=== PATIENT | female | born 1945 | race Caucasian/White ===

== ENCOUNTER → 2019-08-15 | Outpatient (CLI) | payer MEDICARE, BC ==
[~2019-08-15] MED LIST: ASPI81TA86 PO; ATEN50TA9 PO; MULT-90 PO; PRAV20TA2 PO; VENL75TA2 PO; VITAD400CA FT
--- NOTE | 2019-08-15 16:16 | REP ---
REASON FOR EXAM: Hip pain. No trauma. No priors. Severe asymmetric hip joint space narrowing is present. There is mild marginal osteophytosis. There is no buttressing, fracture, or dislocation. IMPRESSION: Degenerative changes. Electronically Signed by Ayo Barton DO 08/16/2019 11:05 A
== END ==
LOC: M WUC 11:00
PROVIDERS: ATTEND Physician Assistant
DX: M25.751 Osteophyte, right hip (principal)

== ENCOUNTER 2019-09-22 12:23 | Emergency (ER) | payer MEDICARE, BC | END 2019-09-22 14:38 | disposition home or self-care (01) | LOC: M ED 12:23 | DX: N95.0 Postmenopausal bleeding (principal); R93.89 Abnormal findings on diagnostic imaging of other specified body structures; I10 Essential (primary) hypertension; E78.5 Hyperlipidemia, unspecified; Z79.899 Other long term (current) drug therapy; Z79.82 Long term (current) use of aspirin ==

== ENCOUNTER → 2019-09-29 | Outpatient (CLI) | payer MEDICARE, BC | LOC: M LABSMTC 08:56 | PROVIDERS: ATTEND Anesthesiology | DX: Z01.812 Encounter for preprocedural laboratory examination (principal); Z20.828 Contact with and (suspected) exposure to other viral communicable diseases ==

== ENCOUNTER 2019-10-04 06:08 | Day surgery (SDC) | payer MEDICARE, BC ==
[~2019-10-04] VITALS: Ht 160 cm; Wt 78.5 kg
[2019-10-04] MEDS ORDERED: VENL75TA2 PO (06:31)
[2019-10-04] MEDS ORDERED: VITAD400CA FT (06:31)
[2019-10-04] MEDS ORDERED: MULT-90 PO (06:31)
[2019-10-04] MEDS ORDERED: ATEN50TA9 PO (06:31)
[2019-10-04] MEDS ORDERED: ASPI81TA86 PO (06:31)
[2019-10-04] MEDS ORDERED: PRAV20TA2 PO (06:31)
[2019-10-04 06:56] LABS: HEMATOCRIT 41.7 % (36.0-47.0); HEMOGLOBIN 14.4 g/dl (12.0-15.5); MEAN CORPUSCULAR HEMOGLOBIN 33.1 pg (27.0-33.0); MEAN CORPUSCULAR HGB CONC 34.5 g/dl (32.0-36.5); MEAN CORPUSCULAR VOLUME 95.9 fl (80.0-96.0); PLATELET COUNT, AUTOMATED 314 10^3/uL (150-450); RED BLOOD COUNT 4.35 10^6/uL (4.00-5.40); WHITE BLOOD COUNT 8.2 10^3/uL (4.0-10.0)
[2019-10-04] MEDS ORDERED: fentaNYL 100 MCG/2 ML INJECTION (J3010) As Ordered ONE (07:15)
[2019-10-04] MEDS ORDERED: dexameTHASONE 4 MG/ML 1ML VIAL (J1100 PER 1MG) As Ordered ONE (07:15)
[2019-10-04] MEDS ORDERED: propofoL 200 MG/20 ML VIAL As Ordered ONE (07:15)
[2019-10-04] MEDS ORDERED: ONDANSETRON 4MG/2ML VIAL As Ordered ONE (07:15)
[2019-10-04] MEDS ORDERED: MIDAZOLAM INJ 2MG/2ML VIAL (J2250 PER 1MG) As Ordered ONE (07:15)
[2019-10-04] MEDS ORDERED: LIDOCAINE 2% 100MG/5ML SDV (FOR ANES.) As Ordered ONE (07:15)
[2019-10-04] MEDS ORDERED: ePHEDrine SULFATE 25 MG/5 ML(5MG/ML) SYRINGE As Ordered ONE (08:29)
[2019-10-04] MEDS ORDERED: PHENYLephrine HCL 500 MCG/5 ML (100MCG/ML) SYRINGE (J2370) As Ordered ONE (08:32)
[2019-10-04] MEDS ORDERED: KETOROLAC 60MG 2ML VIAL As Ordered ONE (08:38)
[2019-10-04] MEDS ORDERED: ACETAMINOPHEN 1000MG 100ML IV BTL (OFIRMEV) (J0131 PER 10MG) As Ordered ONE (08:43)
[2019-10-04] MEDS ORDERED: LR 1,000 ML IV SCH (09:15)
[2019-10-04] MEDS ORDERED: fentaNYL 100 MCG/2 ML INJECTION (J3010) IV PRN (09:15)
[2019-10-04] MEDS ORDERED: oxyCODONE 5MG TAB PO PRN (09:15)
[2019-10-04] MEDS ORDERED: ONDANSETRON 4MG/2ML VIAL IV PRN (09:15)
[2019-10-04] MEDS ORDERED: PERCOCET 5MG/325MG TAB PO PRN (09:15)
--- NOTE | 2019-10-04 09:35 | ROOPDOC ---
[facility] Report Of Operation Report of Operation DATE OF PROCEDURE: 10/04/19 PREOPERATIVE DIAGNOSES: 1. Thickened endometrium. 2. Postmenopausal bleeding POSTOPERATIVE DIAGNOSES: 1. Thickened endometrium. 2. Postmenopausal bleeding PROCEDURE PERFORMED: Hysteroscopy, dilation and curettage with MyoSure. SURGEON: Anamika Harris MD WEB SERVICES MANAGER: None. ANESTHESIA: General via laryngeal mask airway ESTIMATED BLOOD LOSS: 5ml IV FLUIDS: 600 mL of lactated Ringer's solution. URINE OUTPUT: Not obtained. PREOPERATIVE ANTIBIOTICS: None. OPERATIVE FINDINGS: [Patient with an approximately thicken endometrium. Bilateral ostia was visualized. Otherwise, normal appearing endometrial cavity. DESCRIPTION OF PROCEDURE: After informed consent was obtained written consent was reviewed, the patient brought to operating room where she was placed under general anesthesia. She was then placed in lithotomy position and was prepped and draped in normal sterile fashion. Time-out in the operating room was then performed identifying the patient, procedure be performed as well as drug allergies. [place] speculum was placed revealing the cervix. Anterior lip of the cervix grasped with a single-tooth tenaculum. The uterus then sounded to 9 cm. The cervix then sequentially dilated using Hanks dilators. Hysteroscope was then advanced through the cervical os and endometrial cavity was observed with the above-noted findings. MyoSure device was then placed in the hysteroscope and endometrial sampling was performed of the area that was thicken. Hysteroscope was then removed as well as the MyoSure. Sharp curette was then advanced through the cervical os to the level of the fundus and the uterus curetted in a 360 degree fashion. Tissue was obtained and this was sent to pathology for evaluation. The single-tooth tenaculum was then removed. Tenaculum sites were noted be hemostatic. The speculum was then removed. The patient was then taken out of lithotomy position, was awakened from general anesthesia and taken recovery in stable condition. ANAMIKA HARRIS MD. Oct 04, 2019 09:35
[2019-10-04 10:40] VITALS: BP 124/71
[2019-10-04] MEDS ORDERED: KETOROLAC 30 MG/ML 1ML VIAL IV SCH (15:00)
== END 2019-10-04 10:45 | disposition home or self-care (01) ==
LOC: M SDC 06:08
PROVIDERS: ATTEND Obstetrics & Gynecology
DX: C54.1 Malignant neoplasm of endometrium (principal); Z79.82 Long term (current) use of aspirin; Z79.899 Other long term (current) drug therapy
CPT/HCPCS: 58558; 85027; 86850; 86900; 86901; 88305; 88342; J0131; J1100; J1885; J2250; J2370; J2405; J3010

== ENCOUNTER → 2020-10-28 | Outpatient (CLI) | payer MEDICARE, BC ==
[2020-10-28 11:29] LABS: BLOOD UREA NITROGEN 18 MG/DL (7-18); CREATININE FOR GFR 0.73 MG/DL (0.55-1.30); GLOMERULAR FILTRATION RATE > 60.0 (>39)
== END ==
LOC: M LAB 10:24
DX: C54.1 Malignant neoplasm of endometrium (principal)

== ENCOUNTER → 2023-06-28 | Outpatient (CLI) | payer MEDICARE ==
[2023-06-28 13:59] LABS: BASO # 0.1 10^3/uL (0.0-0.2); BASO % 0.8 % (0.0-1.0); EOS # 0.1 10^3/uL (0.0-0.5); HEMATOCRIT 40.1 % (36.0-47.0); HEMOGLOBIN 13.3 g/dl (12.0-15.5); LYMPH # 2.2 10^3/uL (1.5-5.0); LYMPH % 24.5 % (24.0-44.0); MEAN CORPUSCULAR HEMOGLOBIN 32.1 pg (27.0-33.0); MEAN CORPUSCULAR HGB CONC 33.2 g/dl (32.0-36.5); MEAN CORPUSCULAR VOLUME 96.9 fl (80.0-96.0); MONO # 0.8 10^3/uL (0.0-0.8); MONO % 9.1 % (2.0-8.0); NEUTROPHILS # 5.8 10^3/uL (1.5-8.5); NEUTROPHILS % 63.6 % (36.0-66.0); PLATELET COUNT, AUTOMATED 290 10^3/uL (150-450); RED BLOOD COUNT 4.14 10^6/uL (4.00-5.40); WHITE BLOOD COUNT 9.2 10^3/uL (4.0-10.0)
== END ==
LOC: M WUC 12:20
PROVIDERS: ATTEND Nurse Practitioner Family
DX: L03.031 Cellulitis of right toe (principal)

== ENCOUNTER → 2023-10-04 | Outpatient (CLI) | payer MEDICARE ==
[2023-10-04 20:04] LABS: ALBUMIN 3.5 G/DL (3.2-5.2); BLOOD UREA NITROGEN 14 MG/DL (9-23); CARBON DIOXIDE LEVEL 34 MMOL/L (20-31); CHLORIDE LEVEL 102 MMOL/L (98-107); GLOMERULAR FILTRATION RATE > 60.0 (>39); GLUCOSE, FASTING 114 MG/DL (74-106); PHOSPHORUS LEVEL 3.7 MG/DL (2.4-5.1); POTASSIUM SERUM 3.4 MMOL/L (3.5-5.1); SODIUM LEVEL 141 MMOL/L (136-145)
== END ==
LOC: M WUC 15:34
PROVIDERS: ATTEND Physician Assistant
DX: J06.9 Acute upper respiratory infection, unspecified (principal); R05.9 Cough, unspecified; U07.1 COVID-19

== ENCOUNTER → 2023-11-19 | Outpatient (REF) | payer MEDICARE | LOC: M LAB REF 08:37 | PROVIDERS: ATTEND Physician Assistant | DX: N30.00 Acute cystitis without hematuria (principal) ==